=== PATIENT | male | born 1975 | race Caucasian/White ===

== ENCOUNTER 2019-03-18 13:22 | Emergency (ER) | payer OTHER, SELFPAY ==
[2019-03-18 13:23] VITALS: BP 141/91; PULSE 80; RESP 16; TEMP 36.6; O2SAT 96; BMI 28.8
--- NOTE | 2019-03-18 13:39 | EKG12_ITS ---
Test Reason : CP Blood Pressure : / mmHG Vent. Rate : 066 BPM Atrial Rate : 066 BPM P-R Int : 144 ms QRS Dur : 104 ms QT Int : 386 ms P-R-T Axes : 035 000 038 degrees QTc Int : 404 ms Normal sinus rhythm Low voltage QRS (Limb Leads) Confirmed by VEDA PACE, LEEANNA ([id number]), medical transcription editor MELODIE MUIR ([id number]) on 03/20/2019 9:50:13 AM Referred By: CHASE
--- NOTE | 2019-03-18 13:48 | RAD_ITS ---
STUDY: X-RAY CHEST REASON FOR EXAM: Male, 43 years old. Chest pain TECHNIQUE: Frontal and lateral views of the chest COMPARISON: None. FINDINGS: The lungs are clear. There are no pleural effusions. There is no pneumothorax. The heart is normal in size. The visualized osseous structures are within normal limits. RAD/Chest PA and Lateral IMPRESSION: No acute thoracic pathology. Electronically Signed: Oscar Clark, at 14:10 EDT Tel , Service support ,
[2019-03-18 13:55] LABS: Absolute Lymphocyte Count 1.69 X10^3/uL (0.83-4.51); Absolute Neutrophil Count 5.9 X10^3/uL (2.0-7.7); Basophil# 0.06 X10^3/uL; Basophil% 0.7 % (0-1); Eosinophils% 1.2 % (0-5); Hematocrit 41.7 % (40-54); Lymphocyte # 1.69 X10^3/ul (4.0); Lymphocyte % 19.8 % (19-41); Mean Corp Hgb Conc 33.6 g/dL (32-36); Mean Corpuscular Hgb 29.7 pg (27.0-32.0); Mean Corpuscular Volume 88.5 fL (80-94); Mean Platelet Vol. 9.8 fl (6.2-12.0); Monocyte% 9.4 % (0-10); NRBC Flagged by Analyzer 0 % (0-5); Neutrophil # 5.85 X10^3/uL (2.7-7.7); Neutrophil % 68.3 % (47-70); Platelet Count 261 K/mm3 (150-450); RBC Distribution Width CV 12.3 % (11.6-14.6); RBC Distribution Width SD 40.1 fl (35.1-43.9); Red Blood Count 4.71 M/mm3 (4.6-6.2); White Blood Count 8.6 K/mm3 (4.4-11.0)
[2019-03-18 14:09] LABS: ALB/GLOB Ratio 1.1 RATIO (0.9-2.4); AST(SGOT) 9 U/L (15-37); Alanine Aminotransfer ALT/SGPT 19 U/L (16-61); Albumin, Serum 3.6 g/dL (3.2-5.0); Alkaline Phosphatase 63 U/L (45-117); Anion Gap 6 (5-15); BUN 9 mg/dL (7-18); BUN/Creat Ratio 9.6 RATIO (10-20); Calcium,Total 8.4 mg/dL (8.5-10.1); Chloride 109 mmol/L (98-107); Creatinine, Serum 0.94 mg/dL (0.70-1.30); EST Glomerular Filtration Rate 93 mL/min (>60); Est Glom Filt Rate - Afr Amer 113 mL/min (>60); Estimated Creatinine Clearance 102.37 ml/min; Globulin 3.3 g/dL (2.2-4.2); Glucose 91 mg/dL (74-106); Lipase 84 U/L (73-393); Potassium 3.7 mmol/L (3.5-5.1); Protein, Total 6.9 g/dL (6.4-8.2); Sodium Level 140 mmol/L (136-145)
--- NOTE | 2019-03-18 14:28 | ED.DCSUM_ITS ---
History of Present Illness Informant: Patient Onset: Weeks - 2 weeks Activity at onset: Light Activity, Rest Timing: Continuous Quality: Burning Location: Substernal Current Severity: Moderate Maximum Severity: Severe Worsened By: Eating, Coughing Relieved By: Nothing Associated Symptoms: Nausea. Negative for: Vomiting, Diaphoresis, Dyspnea, Cough, Fever, Lightheadedness, Acid Reflux, Palpitations Narrative: History of GERD presents to the emergency department with 2 weeks of substernal chest pain. It is sharp and stabbing. Intermittent. It is not exertional. It radiates to his back. He has had nausea but no vomiting. Is worse with eating. He has been taking [id number] Pepcid. He is not an improvement. He is concerned it is cardiac. No shortness of breath. No lightheadedness or dizziness. No fevers. No leg pain or swelling. No recent travel or surgery. No history of DVT or PE. He smokes daily. Denies history of diabetes, high cholesterol or high blood pressure. Prior Similar Symptoms: Yes Recent Illness/Hospitalization: No CVD Risk Factors: Smoking. Negative for: Diabetes, Hypercholesterolemia, Family History 1' </=55 PE Risk Factors: Negative for: Recent Travel/Surgery, Recenet Immobilization, Prior DVT or PE, Cancer, OCP + Smoking + >/=35 TAD Risk Factors: Negative for: Marfan's Syndrome, Hypertension, Family History <Blair Richardson - Last Filed: 03/18/19 14:33> <Nicky Posey - Last Filed: 03/18/19 21:15> Chief Complaint: Chest Other Past Medical History Prior records reviewed: Yes Past Medical History: None Surgical History: no surgical history Lives: Alone Smoking Status: Former smoker <Blair Richardson - Last Filed: 03/18/19 14:33> <Nicky Posey - Last Filed: 03/18/19 21:15> - Allergies and Home Meds Allergies/Adverse Reactions: Allergies No Known Allergies Allergy (Verified 03/18/19 13:23) Primary Care Physician: Bobby Archer MD [NON-STAFF] - Care Physician,No Primary [Primary Care Provider] - Review of Systems All systems negative except as indicated General: Denies: Chills, Fever Cardiovascular: Reports: Chest pain Respiratory: Denies: Dyspnea, Cough, Sputum, Dyspnea on exertion, Orthopnea, Paroxysmal nocturnal dyspnea Gastrointestinal: Reports: Abdominal pain, Nausea. Denies: Vomiting, Diarrhea, Constipation, Melena <Blair Richardson - Last Filed: 03/18/19 14:33> Physical Exam Vital Signs/Narrative: Vital Signs Temp Pulse Resp BP Pulse Ox 03/18/19 13:23 97.9 F 80 16 141/91 H 96 Inital Vital Signs reviewed: Yes General: Well nourished, Well developed, No Acute Distress Head: Normocephalic, Atraumatic Eyes: Perrl, EOMI ENT: Moist mucous membranes Neck: Supple, Nontender, No lymphadenopathy, No JVD Cardiovascular: Regular rate, Regular rhythm, No murmurs Respiratory: No distress, CTA bilaterally, Chest nontender Abdomen: Soft, Nontender, Nondistended, Normal bowel sounds, No masses Back: Nontender, Normal Inspection Extremities: Nontender, No edema Skin: Normal color, No rash Neurological: Alert, Oriented x3, Normal Gait <Blair Richardson - Last Filed: 03/18/19 14:33> Diagnostic/Tx/Re-eval Chest X-Ray - ED: 2 View, Read by ED Physician, Read by Radiologist, No Acute Disease - Rhythm Strip Rhythm Strip: Sinus Rhythm Rate: 66 Ectopy: None - EKG Initial EKG Interpretation: Sinus Rhythm Prior: No Prior - Medical Decision Making EKG on arrival is normal sinus rhythm. Rate of [address] segment or T wave changes. Normal interval and no ectopy. Patient overall is well-appearing with stable vital signs. His laboratory work-up was unremarkable including CBC CMP and troponin. Chest x-ray unremarkable. Discussed with patient that this is likely gastroenterologic in origin. Will start on Protonix. We will give him referral to gastroenterology. His heart score is 1. We feel he is safe for discharge. He is agreeable with our plan of care. Return precautions discussed and he was agreeable. <Blair Richardson - Last Filed: 03/18/19 14:33> - Medical Decision Making Patient seen with physician's medical assistant cardiology. Patient presents with chest pain with radiation through to his back. 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 He states this was seen by a surgeon on scope. Patient tells me the surgeon gave him the option of whether to treat this or not. This episode was reportedly several years ago. Patient has recently had increased pain. He denies significant cough. Patient sitting upright in bed no acute distress. Heart regular rate and rhythm. No murmur or friction rub noted. Lung sounds are clear. There is reproducible anterior chest wall tenderness. Abdomen is soft nontender. Extremity examination shows no calf tenderness or edema. Neuro exam is unremarkable. Test results are reviewed. We attempted to review prior records from [facility] in [place]. On a prior H&P they document history of gastritis and reflux, but no documented history of a perforated ulcer. Patient be started on Protonix and advised to follow-up with surgery or GI for further evaluation. <Nicky Posey - Last Filed: 03/18/19 21:15> ED Disposition <Blair Richardson - Last Filed: 03/18/19 14:33> <Nicky Posey - Last Filed: 03/18/19 21:15> - Plan for ED Patient: Disposition: Home or Assisted Living Diagnosis: Chest pain, GERD (gastroesophageal reflux disease) Instructions: Lifestyle Changes for Controlling GERD, CHEST PAIN, Uncertain Cause Prescriptions: Pantoprazole Sodium [Protonix] 40 mg PO DAILY #30 tab Prescription Printed Referrals: Care Physician,No Primary [Primary Care Provider] - Bobby Archer MD [NON-STAFF] -
== END 2019-03-18 14:57 | disposition home or self-care (01) ==
PROVIDERS: Emergency Provider Physician Assistant Medical
DX: R07.9 Chest pain, unspecified (principal); K21.9 Gastro-esophageal reflux disease without esophagitis; Z87.891 Personal history of nicotine dependence
CPT/HCPCS: 71046; 80053; 83690; 84484; 85025; 93005; 96360; 99285; J7030; A4216